=== PATIENT | male | born 1990 | race Two or more races ===

== ENCOUNTER 2019-07-28 22:14 | Emergency (ER) | payer BC ==
[~2019-07-28] VITALS: Ht 177.8 cm; Wt 163.3 kg
--- NOTE | 2019-07-28 22:09 | Emergency Room Report ---
History of Present Illness General Source: Patient Present Illness HPI Patient is a 28-year-old male who presents after possible allergic reaction after consuming a shake with peanuts. He had prior history of peanut allergy. He had been given epi prior to arrival 0.5 mg. Patient had taken 75 mg of Benadryl by mouth. He had prior history of significant allergic reactions. Allergies: Uncoded Allergies: nkda (Allergy, Unknown, 07/28/19) Patient History Past Medical History: see triage record Reviewed Nursing Documentation: PMH: Agreed; PSxH: Agreed Review of Systems All Other Systems: negative except mentioned in HPI Physical Exam Sp02 EP Interpretation: reviewed, normal General Appearance: normal inspection, alert, obese Head: atraumatic ENT: normal ENT inspection, hearing grossly normal, normal voice Neck: normal inspection, full range of motion, supple, no bony tend Respiratory: normal inspection, lungs clear, normal breath sounds, no respiratory distress, no retraction, no wheezing Cardiovascular #1: regular rate, rhythm, no edema Gastrointestinal: normal inspection, normal bowel sounds, non tender, soft, no guarding, no hernia Genitourinary: no CVA tenderness Musculoskeletal: normal inspection, back normal, normal range of motion Neurologic: alert, motor strength/tone normal, 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 Differential diagnosis include was not limited to anaphylaxis, angioedema, anaphylactoid reaction among others. Because of complexity of patient's case laboratory tests were ordered.Patient was given Pepcid as well as IV steroids. He had recently been given epinephrine. Patient was observed in the emergency department. He was noted to have complete resolution of his symptoms. Patient was observed for several hours and had continued improvement. Patient appears to be stable for discharge. He is given strict return precautions. He was given prescription for EpiPen as well as for Benadryl and oral steroids. He was advised to return if any worsening of condition or other difficulty with breathing. Labs Test 07/28/19 22:30 White Blood Count 15.7 K/UL (4.8-10.8) Red Blood Count 5.47 M/UL (4.70-6.10) Hemoglobin 12.9 G/DL (14.2-18.0) Hematocrit 39.8 % (42.0-52.0) Mean Corpuscular Volume 73 FL (80-99) Mean Corpuscular Hemoglobin 23.5 PG (27.0-31.0) Mean Corpuscular Hemoglobin Concent 32.3 G/DL (32.0-36.0) Red Cell Distribution Width 14.0 % (11.6-14.8) Platelet Count 493 K/UL (150-450) Mean Platelet Volume 5.4 FL (6.5-10.1) Neutrophils (%) (Auto) 67.5 % (45.0-75.0) Lymphocytes (%) (Auto) 28.3 % (20.0-45.0) Monocytes (%) (Auto) 3.7 % (1.0-10.0) Eosinophils (%) (Auto) 0.1 % (0.0-3.0) Basophils (%) (Auto) 0.4 % (0.0-2.0) Sodium Level 138 MMOL/L (136-145) Potassium Level 4.0 MMOL/L (3.5-5.1) Chloride Level 101 MMOL/L (98-107) Carbon Dioxide Level 24 MMOL/L (21-32) Anion Gap 13 mmol/L (5-15) Blood Urea Nitrogen 12 mg/dL (7-18) Creatinine 1.3 MG/DL (0.55-1.30) Estimat Glomerular Filtration Rate > 60 mL/min (>60) Glucose Level 241 MG/DL (74-106) Calcium Level 8.3 MG/DL (8.5-10.1) Total Bilirubin 0.3 MG/DL (0.2-1.0) Aspartate Amino Transf (AST/SGOT) 28 U/L (15-37) Alanine Aminotransferase (ALT/SGPT) 27 U/L (12-78) Alkaline Phosphatase 93 U/L (46-116) Total Protein 9.3 G/DL (6.4-8.2) Albumin 3.4 G/DL (3.4-5.0) Globulin 5.9 g/dL Albumin/Globulin Ratio 0.6 (1.0-2.7) Status: improved Disposition: HOME, SELF-CARE Condition: Stable Scripts Epinephrine (Epipen 2-Nathan) 0.3 Mg/0.3 Ml Auto.injct 0.3 MG IM ONCE for severe allergic reaction, #1 EA Prov: Sushil Guo MD 07/29/19 Diphenhydramine Hcl (BENADRYL ALLERGY) 25 Mg Tablet 50 MG PO EVERY 6 HOURS, #30 TAB Prov: Sushil Guo MD 07/29/19 Prednisone* (PREDNISONE*) 20 Mg Tablet 40 MG ORAL DAILY, #10 TAB Prov: Sushil Guo MD 07/29/19 Sushil Guo MD Jul 28, 2019 22:09
--- NOTE | 2019-07-28 22:14 | NUR ---
ED Nurse Note: Walk-in patient presents with complaints of allergic reaction possibel to nuts products in milkshake. Patietn is red, has complaints of throat and tongue fuzziness. Will continue to monitor and service impending orders.
[2019-07-28] MEDS ORDERED: Dexamethasone 4mg/ml vial IVP ONE (22:15)
[2019-07-28] MEDS ORDERED: Dexamethasone 4mg/ml vial ONE (22:18)
[2019-07-28 22:41] VITALS: BP 147/93
--- NOTE | 2019-07-28 22:50 | NUR ---
ED Nurse Note: Patient tolerated medication administration well. Patient is currelntly attempting to control his breatin as he is tachyneic and tachycardic due to the epi given enroute. Patient has sister at bedside.
[2019-07-28 22:59] LABS: BASOPHILS % (AUTO) 0.4 % (0.0-2.0); EOSINOPHILS % (AUTO) 0.1 % (0.0-3.0); HEMATOCRIT 39.8 % (42.0-52.0); HEMOGLOBIN 12.9 G/DL (14.2-18.0); LYMPHOCYTES % (AUTO) 28.3 % (20.0-45.0); MEAN CORPUSCULAR VOLUME 73 FL (80-99); MONOCYTES % (AUTO) 3.7 % (1.0-10.0); NEUTROPHILS % (AUTO) 67.5 % (45.0-75.0); PLATELET COUNT 493 K/UL (150-450); RED BLOOD COUNT 5.47 M/UL (4.70-6.10); WHITE BLOOD COUNT 15.7 K/UL (4.8-10.8)
[2019-07-28 23:05] LABS: ANION GAP 13 mmol/L (5-15); BLOOD UREA NITROGEN 12 mg/dL (7-18); CALCIUM 8.3 MG/DL (8.5-10.1); CARBON DIOXIDE 24 MMOL/L (21-32); CHLORIDE 101 MMOL/L (98-107); CREATININE 1.3 MG/DL (0.55-1.30); SODIUM 138 MMOL/L (136-145)
[2019-07-28 23:09] LABS: ALANINE AMINOTRANSFERASE 27 U/L (12-78); ALBUMIN 3.4 G/DL (3.4-5.0); ALBUMIN/GLOBULIN RATIO 0.6 (1.0-2.7); ALKALINE PHOSPHATASE 93 U/L (46-116); ASPARTATE AMINO TRANSFERASE 28 U/L (15-37); BILIRUBIN,TOTAL 0.3 MG/DL (0.2-1.0)
[2019-07-28 23:59] VITALS: BP 152/101
--- NOTE | 2019-07-29 00:03 | NUR ---
ED Nurse Note: Patient resting comfortably with sister at bedside, verbalized feeling better. Full vital signs stable and documented.
[2019-07-29 00:07] VITALS: BP 121/61
[2019-07-29 00:57] VITALS: BP 122/52
[2019-07-29] MEDS ORDERED: EPIPEN 2-P0.3 MG/0.3 IM (01:09)
[2019-07-29] MEDS ORDERED: BENADRYL ALLERG25 M1 PO (01:09)
[2019-07-29] MEDS ORDERED: PREDNISONE20 MG ORAL (01:09)
[2019-07-29 01:11] VITALS: BP 122/52
--- NOTE | 2019-07-29 01:11 | NUR ---
ED Nurse Note: Patient cleared for discharge by ERMkaren. Patient is awake and alert x 4, has no s.s of acute distress. redness has regressed. Patient is ambulatory with steady gait. Patient verbalized understanding of discharge instructions. Patient IV was removed, Id band removed. Patient departed with all belongings accopanied by his sister.
== END 2019-07-29 01:11 | disposition home or self-care (01) ==
LOC: EDBD 22:14 → EMR 23:00
DX: T78.1XXA Other adverse food reactions, not elsewhere classified, initial encounter (principal); X58.XXXA Exposure to other specified factors, initial encounter
CPT/HCPCS: 36415; 80053; 85025; 96365; 96375; 99284; J1100; J7030; S0028